=== PATIENT | male | born 1985 | race Caucasian/White ===

== ENCOUNTER 2020-11-26 16:54 | Emergency (ER) | payer BC, SELFPAY ==
--- NOTE | ~2020-11-26 | XR_ITS ---
EXAMINATION: XR lumbar spine 2-3V DATE: 11/26/2020 17:43 INDICATION: Low back pain TECHNIQUE: Anteroposterior and lateral views of the lumbar spine, and cone-down lateral view of the l umbosacral junction were obtained. COMPARISON: None. FINDINGS: There is no fracture. There are 2 mm of retrolisthesis of L5 on S1 with mild loss of interv ertebral disc space height at L5-S1. The vertebral body heights are maintained. The bowel gas pattern is normal. IMPRESSION: 1. Mild lumbar spondylosis without acute findings. Reviewed, dictated and finalized at location A. 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
--- NOTE | ~2020-11-26 | XR_ITS ---
EXAMINATION: XR hip RT min 2V DATE: 11/26/2020 17:42 INDICATION: Right hip pain TECHNIQUE: Anteroposterior, frog leg, and cross-table lateral views of right hip were obtained. COMPARISON: None. FINDINGS: Bone alignment is normal. There is no fracture. The soft tissues are unremarkable. IMPRESSION: 1. No acute osseous abnormality. Reviewed, dictated and finalized at location A. 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
[2020-11-26 17:00] VITALS: BP 143/87; PULSE 83; RESP 15; TEMP 36.1; O2SAT 99
--- NOTE | 2020-11-26 17:15 | ED.BACK ---
HPI - Back Pain/Injury General Chief Complaint: Extremity Injury, Lower Stated Complaint: Hip Time Seen by Provider: 11/26/20 17:15 Source: patient Mode of arrival: wheelchair Limitations: no limitations History of Present Illness HPI Narrative: Previously well 35-year-old man comes in today complaining of sudden low back and right hip pain that started 11:00 a.m. this morning. Patient states that he sneezed and felt like the pain shot down his leg. He still has pain going down his leg to his knee and he is having difficulty walking. He states he has had some prior back pain but nothing he sought treatment for nor has he had back fractures or surgery. 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 He denies fever, chills, night sweats, nausea, vomiting, dysuria, hematuria or incontinence. He has had no recent illness, cough or cold symptoms or sore throat. MD elicited complaint: back pain Pertinent past history: prior back pain Timing: constant Severity: severe Quality: sharp Location: lumbar spine Radiation: right upper leg Relieving factors: none Context: other (sneeze) Treatments prior to arrival: acetaminophen Related Data Allergies Allergy/AdvReac Type Severity Reaction Status Date / Time No Known Allergies Allergy Verified 11/26/20 17:17 Review of Systems Constitutional: Constitutional: Denies chills, Denies fever(s) and Denies weakness ENT: Denies nasal congestion and Denies sore throat Cardiovascular: Cardiovascular: Denies chest pain and Denies radiating jaw, neck or arm pain Respiratory: Respiratory: Denies cough and Denies dyspnea Gastrointestinal: Gastrointestinal: Denies nausea and Denies vomiting Genitourinary: Genitourinary: Denies hematuria and Denies dysuria Musculoskeletal: Musculoskeletal: Reports back pain, Denies arthralgias and Denies joint swelling Integumentary/Breasts: Skin/Breast: Denies pruritus, Denies erythema and Denies rash Neurologic: Denies vertigo, Denies dizziness and Denies syncope Endocrine: Endocrine: Denies polydipsia and Denies polyuria Hematologic/Lymphatic: Hematologic/Lymphatic: Denies easy bleeding and Denies easy bruising Allergic/Immunologic: Allergic/Immunologic: Denies lip swelling and Denies tongue swelling [facility] Social History Social History (Updated 11/26/20 @ 17:26 by Wil Cox MD) Smoking status: Never smoker Substance use: never Living arrangements: with family Exam Const: General: healthy appearing and alert Orientation/consciousness: patient oriented x3 Limitations: no limitations Other: moderate acute distress Eyes: Conjunctivae: conjunctivae normal Pupils: Equal, round and reactive pupils present EOM: EOMs intact bilaterally Resp: Effort & Inspection: normal respiratory effort and not labored Auscultation: clear to auscultation bilaterally, no rales, no rhonchi and no wheezes Cardio: Rate: regular rate Rhythm: regular rhythm Heart sounds: no murmurs Skin: General skin exam: normal color, no jaundice and no pallor Rashes: no rashes Neuro: General: patient oriented x3, moves all extremities, no focal motor deficits and CN's II-XI intact bilaterally Speech: normal speech Gait exam (Neuro): Normal gait present Extrem: General: normal to inspection and no clubbing, cyanosis or edema Other: Normal muscle strength at hip flexors, knee flexion and extension, and toe extension and flexion bilaterally. There is no tenderness palpation of the lumbar spine or sacrum and there is no erythema, swelling, induration or abnormal contour. DTRs are 2+ and symmetric in the patellar and calcaneal tendons bilaterally Psych: Appearance: grossly normal and well kempt Mental Status: mental status grossly normal Affect: normal affect Attitude: cooperative Thought content: Yes Normal thought content present Discharge Plan Discharge Clinical Impression: Acute lumbar radiculopathy Patient Disposition: Home, Self-Care Condition: Stable Instruct
[2020-11-26] MEDS: KETOROLAC (*BKC) 60 MG/2 ML VIAL IM (17:40)
[2020-11-26] MEDS: HYDROcodone/acetaminophen (*CRX) 5-325 MG TABLET 1 TAB PO (17:40)
[2020-11-26 18:12] VITALS: RESP 14; O2SAT 100
== END 2020-11-26 18:13 | disposition home or self-care (01) ==
PROVIDERS: Emergency Provider Emergency Medicine; PCP Physician Assistant
DX: M54.16 Radiculopathy, lumbar region (principal)
CPT/HCPCS: 72100; 73502; 96372; 99283; 99284; A9270; J1885